=== PATIENT | female | born 1960 ===

== ENCOUNTER 2019-10-22 05:31 | Day surgery (SDC) | payer BC, OTHER ==
[2019-10-20 14:26] VITALS: BMI 27.3
[2019-10-22 11:05] VITALS: TEMP 97.7
[2019-10-22 12:33] VITALS: BP 130/59; PULSE 40
== END 2019-10-22 12:55 | disposition home or self-care (01) ==
LOC: JASU-ENDO 05:31
PROVIDERS: ATTEND Internal Medicine Gastroenterology
PROC: 0DJD8ZZ Inspection of Lower Intestinal Tract, Via Natural or Artificial Opening Endoscopic (ICD-10-PCS; principal; 2019-10-22 13:30)
DX: Z12.11 Encounter for screening for malignant neoplasm of colon (principal); Z83.71 Family history of colonic polyps; K64.8 Other hemorrhoids